=== PATIENT | male | born 1985 | race Caucasian/White ===

== ENCOUNTER 2017-08-06 05:27 | Day surgery (SDC) | payer OTHER ==
[2017-07-30 09:19] LABS: ABSOLUTE EOSINOPHILS # (AUTO) 0.1 10^3/uL (0.0-0.6); ABSOLUTE MONOCYTES (AUTO) 0.4 10^3/uL (0.1-1.4); ABSOLUTE NEUT (AUTO) 2.6 10^3/uL (1.7-8.2); BASOPHILS % (AUTO) 0.4 % (0-2); EOSINOPHILS % (AUTO) 2.7 % (0-6); HEMATOCRIT 44.3 % (37.9-51.0); HEMOGLOBIN 15.4 g/dL (13.5-17.0); HGB HCT DIFFERENCE 1.9; LYMPHOCYTES % (AUTO) 38.7 % (13-45); MEAN CORPUSCULAR HEMOGLOBIN 31.7 pg (27.0-33.4); MEAN CORPUSCULAR HGB CONC 34.8 g/dL (32.0-36.0); MEAN CORPUSCULAR VOLUME 91 fl (80-97); MONOCYTES % (AUTO) 7.9 % (3-13); RED BLOOD COUNT 4.86 10^6/uL (4.35-5.55); RED CELL DISTRIBUTION WIDTH 12.2 % (11.5-14.0); SEGMENTED NEUTROPHILS % (AUTO) 50.3 % (42-78); WHITE BLOOD COUNT 5.2 10^3/uL (4.0-10.5)
[2017-07-30 09:24] LABS: APPEARANCE,URINE CLEAR; BILIRUBIN,URINE NEGATIVE (NEGATIVE); GLUCOSE, URINE NEGATIVE (NEGATIVE); KETONES,URINE NEGATIVE (NEGATIVE); LEUKOCYTE ESTERASE,URINE NEGATIVE (NEGATIVE); NITRITE,URINE NEGATIVE (NEGATIVE); PROTEIN,URINE NEGATIVE (NEGATIVE); URINE SPECIFIC GRAVITY 1.011; UROBILINOGEN,URINE NEGATIVE mg/dL (<2.0)
[2017-07-30 09:35] LABS: ANION GAP 17 (5-19); BLOOD UREA NITROGEN 15 mg/dL (7-20); CALCIUM 10.5 mg/dL (8.4-10.2); CARBON DIOXIDE 27 mmol/L (22-30); CHLORIDE 101 mmol/L (98-107); GLUCOSE 84 mg/dL (75-110); POTASSIUM 4.9 mmol/L (3.6-5.0); SODIUM 144.5 mmol/L (137-145)
--- NOTE | 2017-07-30 19:46 | EKG REPORT ---
SEVERITY:- NORMAL ECG - SINUS RHYTHM : Confirmed by: Chase Turpin MD 30-Jul-2017 19:45:06
[~2017-08-06 05:27] MED LIST: CEFAZOLIN 2 GM/D5W RTU 2 GM/50 ML RTUPB IV PRN; LACTATED RINGERS 1000 ML IV PRN; LIDOCAINE 0.5% INJ-PF (5 MG/ML) 50 ML SDV SUBCUT PRN
[2017-08-06] MEDS ORDERED: FENTANYL CITRATE INJ/PF 100 MCG/2 ML AMPUL ONE (07:00)
[2017-08-06] MEDS ORDERED: ACETAMINOPHEN 100 ML IV ONE (07:00)
[2017-08-06] MEDS ORDERED: MIDAZOLAM 2 MG/2 ML INJ ONE (07:01)
[2017-08-06] MEDS ORDERED: EPHEDRINE SULFATE INJ 50 MG/1 ML AMPULE ONE (07:01)
[2017-08-06] MEDS ORDERED: PROPOFOL INJ 200 MG/20 ML VIAL IV ONE (07:01)
[2017-08-06] MEDS ORDERED: IBUPROFEN INJ 800 MG/8 ML VIAL IV ONE (07:01)
[2017-08-06] MEDS ORDERED: HYDROMORPHONE HCL INJ/PF 2 MG/ML AMPULE ONE (07:02)
[2017-08-06] MEDS ORDERED: BUPIVACAINE HCL 0.5 % INJ/PF 30 ML SDV ONE (07:20)
[2017-08-06] MEDS ORDERED: EPINEPHRINE INJ/PF 1 MG/1 ML AMPULE ONE (07:21)
--- NOTE | 2017-08-06 07:29 | RADIOLOGY REPORT (SQ) ---
EXAM DESCRIPTION: CHEST SINGLE VIEW COMPLETED DATE/TIME: 08/06/2017 7:18 am REASON FOR STUDY: preop COMPARISON: None. EXAM PARAMETERS: NUMBER OF VIEWS: One view. TECHNIQUE: Single frontal radiographic view of the chest acquired. RADIATION DOSE: NA LIMITATIONS: None. FINDINGS: LUNGS AND PLEURA: No consolidation, pneumothorax or pleural effusion. MEDIASTINUM AND HILAR STRUCTURES: No masses. Contour normal. HEART AND VASCULAR STRUCTURES: Heart normal in size. Normal vasculature. BONES: No acute findings. HARDWARE: None in the chest. IMPRESSION: NO ACUTE RADIOGRAPHIC FINDING IN THE CHEST. TECHNICAL DOCUMENTATION: JOB ID: [id number]
[2017-08-06] MEDS ORDERED: METOCLOPRAMIDE HCL INJ/PF 10 MG/2 ML SDV ONE (07:52)
[2017-08-06] MEDS ORDERED: GLYCOPYRROLATE INJ 0.4 MG/2 ML VIAL ONE (07:52)
[2017-08-06] MEDS ORDERED: DEXAMETHASONE SOD PHOSPHATE INJ 4 MG/1 ML VIAL ONE (07:52)
[2017-08-06] MEDS ORDERED: LIDOCAINE 2% INJ-PF (20 MG/ML) 10 ML AMPUL ONE (07:52)
[2017-08-06] MEDS ORDERED: SUCCINYLCHOLINE CHLORIDE INJ 200 MG/10 ML VIAL ONE (07:52)
[2017-08-06] MEDS ORDERED: ONDANSETRON HCL INJ/PF 4 MG/2 ML SDV ONE (07:52)
[2017-08-06] MEDS ORDERED: ONDANSETRON HCL INJ/PF 4 MG/2 ML SDV IV PRN (08:44)
[2017-08-06] MEDS ORDERED: FENTANYL CITRATE INJ/PF 100 MCG/2 ML AMPUL IV PRN ×3 (08:44)
[2017-08-06] MEDS ORDERED: MEPERIDINE HCL/PF INJ 25 MG/1 ML DISP.SYRIN IV PRN (08:44)
[2017-08-06] MEDS ORDERED: DIPHENHYDRAMINE HCL 50 MG/ML VIAL IV PRN (08:44)
[2017-08-06] MEDS ORDERED: PROMETHAZINE HCL INJ 25 MG/1 ML VIAL IV PRN ×2 (08:44)
--- NOTE | 2017-08-06 10:39 | Operative Report ---
Operative Report DATE OF SURGERY: 08/06/17 PREOPERATIVE DIAGNOSIS: Right hip labral tear and femoral acetabular impingement POSTOPERATIVE DIAGNOSIS: Same OPERATION: Right hip arthroscopy with labral repair 4 anchors. Femoralplasty SURGEON: SVETLANA PERDUE ANESTHESIA: GA TISSUE REMOVED OR ALTERED: None COMPLICATIONS: None ESTIMATED BLOOD LOSS: Less than 20 mL INTRAOPERATIVE FINDINGS: As above PROCEDURE: Patient was brought to the operating room. The patient was induced and intubated in supine position. IV antibiotics were given prior to entering the OR. Boots were placed on both lower extremities. Peroneal post was applied and the patient was brought down to the perineal post. Both extremities were securing and the hip distraction system. At this point traction was placed in both lower extremities. C-arm was used to guide us and allow us to dislocate the right hip successfully. Once sedated gross traction and then gentle traction and confirm a dislocation under C-arm I started the time her the right lower extremity was taken off of gross traction. This point the right hip was prepped and draped in a normal sterile surgical fashion. Timeout was done identifying the right hip as the correct site. With the use of C-arm I placed a spinal needle and the anticipated anterolateral portal site. Once I felt that I piercing the capsule, I inflated the capsule with air using a 60 mL sterile syringe, this was showing proper placement intra-articularly. I this point I placed a nitinol wire and removed the spinal needle. I proceeded to dilate appropriately after using a scalpel to do a incision establish a my portal site. Camera then was introduced and under direct visualization proceeded to use a spinal needle to status my anterior portal site. I marked the ASIS and the midline in the midportion of the thigh to make sure that we were on the lateral aspect of the spine to avoid any neurovascular structures. Once I introduced the spinal needle under direct visualization and C arm guidance the spinal needle, proceeded to use the same technique of placing nitinol wire, removed the needle and then proceeded to dilate the capsule after establishing the portal site with a scalpel. At this point clearly I saw a very complex large tear of the labrum. I proceeded to do my arthrotomy using a retractable Lumbee blade. I proceeded to use switching sticks to changed my camera to the anterior portal and allowing to do complete my arthrotomy from the anterolateral portal using the retractable Lumbee blade. At this point once the arthrotomy was completed I explored the labral tear using a probe showing a complex tear with both radial tear component with a little deformed labral fragment and detached labrum superiorly. Through the anterolateral portal I was able to debride the labral tear and use the radio frequency ablative to shrink some of the frayed pieces. I used a Lumbee blade and to clean off the labral cartilage junction and exposed both ends of the tear. I used the hip labral scorpion then to pass a FiberWire in the most anterior portion. It was then secured in a hip swivel lock and then secured with a hemostat. I then used the guide to place it on the rim of the acetabulum. I made sure I was medial enough and shooting away from the articular cartilage. I proceeded to drill and then placed my anchor securing the FiberWire into the drilled hole. I was happy with the fixation and a use arthroscopic bias binding cutter to cut the remaining FiberWire strands. It was used to make sure the fixation was appropriate. I proceeded then to place 2 more anchors in the same fashion using the hip labral scorpion and drill. The articular cartilage was never violated. For my fourth anchor I switched the camera using same technique of switching sticks and looked through the anterolateral portal and then placed my FiberWire through the most superior and posterior portion of the tear through the lateral portal site. I proceeded to drill through that portal site and placed my anchor and securing the labral tear. Probe was used showing my fixation. Combination of shaver and with difficulty ablative was used to clean off the edges. Pictures were taken of the repair. I then proceeded to use switching sticks then to switch my camera into the lateral portal and remove the traction after an hour and 40 minutes. We removed the perineal post and flex to about 60 and internally rotated. I used the radiofrequency ablator to further expose the head neck junction. I used a 5.5 oval bur to then do my femoral plasty. Resection was done from anterior all way to the superior portion at the head neck junction. I used C-arm for proper placement of the shaver and direct visualization as well. Pictures were taken of my resection. At this point fluid was removed from the peripheral compartment and then the portal sites and instruments were removed. The 2 portal sites were closed with 3-0 nylon. It was covered with Xeroform 4 x 4 dressing and ABD pad and secured with Medipore tape. At this point the patient was extubated and sent to PACU in stable condition.
--- NOTE | 2017-08-06 10:42 | PDOC DISCHARGE SUMMARY ---
Discharge Summary (SDC) - Discharge Final Diagnosis: Right hip arthroscopy with labral repair 4 anchors and femoral plasty Date of Surgery: 08/06/17 Discharge Date: 08/06/17 Condition: Good Treatment or Instructions: Patient instructed to follow up in 10-14 days. Patient instructed to keep dressing dry clean and intact for 4 days and then allowed to remove. At that point patient can shower and apply Band-Aids as needed. Patient can do range of motion as tolerated. Avoid external rotation of the operative hip. Nonweightbearing with crutches 6 weeks Patient instructed to call the office if patient develops fevers chills redness and drainage from the surgical sites. Discharge Diet: As Tolerated Respiratory Treatments at Home: Deep Breathing/Coughing Discharge Activity: No Driving, Keep Legs Elevated, No Lifting/Push/Pulling, Slowly Increase Activity Adaptive Devices on Discharge: Axillary Crutches Report the Following to Your Physician Immediately: Shortness of Breath, Vomiting, Increase in Pain, Redness, Swelling, Warmth, Increased Soreness, Drainage-Yellow, Drainage-Velasquez, Drainage-Green, Drainage-Foul Smelling
[2017-08-06] MEDS ORDERED: OXYCODONE-ACETAMINOPHEN 5-325 MG TABLET PO PRN ×2 (10:58)
--- NOTE | 2017-08-06 11:16 | RADIOLOGY REPORT (SQ) ---
EXAM DESCRIPTION: HIP IN OPERATING RM COMPLETED DATE/TIME: 08/06/2017 10:59 am REASON FOR STUDY: RT HIP ARTHORSCOPY/ LABRAL REPAIR ASSISTED WITH FLUORO IN OR M24.151 OTHER ARTICU LAR CARTILAGE DISORDERS, RIGHT HIP M25.851 OTHER SPECIFIED JOINT DISORDERS, RIGHT HIP COMPARISON: None. FLUOROSCOPY TIME: 0.6 minutes 3 digital C-arm images saved to PACS. TECHNIQUE: Intra-operative images acquired during surgical procedure to evaluate progress. NUMBER OF IMAGES: Cine fluoroscopic images. LIMITATIONS: None. FINDINGS: Intra procedural imaging and fluoro during right hip arthroscopy IMPRESSION: Intra procedural imaging and fluoro COMMENT: Quality ID [id number]: Final reports for procedures using fluoroscopy that document radiation exp osure indices, or exposure time and number of fluorographic images (if radiation exposure indices are not available) Please consult full operative report of the attending physician for description of the procedure. TECHNICAL DOCUMENTATION: JOB ID: [id number] [employer]- All Rights Reserved
[2017-08-06] MEDS ORDERED: PROMETHAZINE HCL INJ 25 MG/1 ML VIAL ONE (11:58)
[2017-08-06] MEDS ORDERED: RINGERS SOLUTION,LACTATED 500 ML IV ONE (12:15)
[2017-08-06] MEDS ORDERED: PROMETHAZINE HCL INJ 25 MG/1 ML VIAL IV ONE (13:15)
[2017-08-06 13:50] VITALS: BP 130/66
== END 2017-08-06 13:30 | disposition home or self-care (01) ==
LOC: OROUT 05:27
PROVIDERS: ATTEND Orthopaedic Surgery
PROC: 0SQ94ZZ Repair Right Hip Joint, Percutaneous Endoscopic Approach (ICD-10-PCS; 2017-08-06)
PROC: 0SQC4ZZ Repair Right Knee Joint, Percutaneous Endoscopic Approach (ICD-10-PCS; principal; 2017-08-06 07:30)
DX: M25.851 Other specified joint disorders, right hip (principal); S73.191A Other sprain of right hip, initial encounter; X58.XXXA Exposure to other specified factors, initial encounter; Z87.891 Personal history of nicotine dependence
CPT/HCPCS: 29914; 29916; 93005; 36415; 85025; 80048; 81001; 71010; 73501; 93010; J2250; J1100; J0171; J2765; J1170; J2550; J0330; J2405; J2704; J3490; J0690; J0131; J1741; 01202; J3010